=== PATIENT | male | born 1965 | race Caucasian/White ===

== ENCOUNTER 2020-11-17 10:45 | Emergency (ER) | payer OTHER, SELFPAY ==
[2020-11-17 10:47] VITALS: BP 135/98; PULSE 86; RESP 17; TEMP 36.7; O2SAT 97; BMI 28.9
--- NOTE | 2020-11-17 10:59 | EKG12_ITS ---
Test Reason : Blood Pressure : / mmHG Vent. Rate : 070 BPM Atrial Rate : 070 BPM P-R Int : 182 ms QRS Dur : 084 ms QT Int : 376 ms P-R-T Axes : 025 033 023 degrees QTc Int : 406 ms Normal sinus rhythm Normal ECG Confirmed by LEIGH EDGE, RADHA ([id number]), restaurant expeditor ARAMIS MOON ([id number]) on 11/23/2020 9:59:26 A M Referred By: CHAZ Confirmed By:KEISHA ABRAHAM MD
--- NOTE | 2020-11-17 10:59 | RAD_ITS ---
STUDY: X-RAY CHEST REASON FOR EXAM: Male, 55 years old. INTERMITTENT SOB X 2 WEEKS BUT ONLY WHEN SLEEPING TECHNIQUE: PA and lateral views of the chest. COMPARISON: None. FINDINGS: The lungs are clear and expanded. There is no demonstrated pleural abnormality. Normal size heart. Normal mediastinum and gloria. Normal visualized pulmonary arteries. Normal visualized aortic arch and descending thoracic aorta. Normal visualized thoracic spine. Normal visualized ribs, clavicles, and shoulders. There is no demonstrated abnormality of the visualized soft tissue structures of the upper abdomen. RAD/Chest PA and Lateral IMPRESSION: Normal x-ray examination of the chest. Electronically Signed: Fred Preston DO at 11:45 EST Tel , Service support ,
--- NOTE | 2020-11-17 11:09 | NURSING ---
NO OLD EKGS
[2020-11-17 11:23] LABS: Absolute Lymphocyte Count 1.38 X10^3/uL (0.83-4.51); Absolute Neutrophil Count 4.8 X10^3/uL (2.0-7.7); Basophil# 0.03 X10^3/uL; Basophil% 0.4 % (0-1); Eosinophil# 0.09 X10^3/uL; Eosinophils% 1.3 % (0-5); Hematocrit 45.9 % (40-54); Hemoglobin 15.4 g/dL (13.0-16.5); Lymphocyte # 1.38 X10^3/ul (4.0); Lymphocyte % 19.9 % (19-41); Mean Corp Hgb Conc 33.6 g/dL (32-36); Mean Corpuscular Hgb 29.9 pg (27.0-32.0); Mean Corpuscular Volume 89.1 fL (80-94); Mean Platelet Vol. 10.1 fl (6.2-12.0); Monocyte# 0.57 X10^3/uL; Monocyte% 8.2 % (0-10); NRBC Flagged by Analyzer 0 % (0-5); Neutrophil # 4.84 X10^3/uL (2.7-7.7); Neutrophil % 69.9 % (47-70); Platelet Count 265 K/mm3 (150-450); RBC Distribution Width CV 13.3 % (11.6-14.6); Red Blood Count 5.15 M/mm3 (4.6-6.2); White Blood Count 6.9 K/mm3 (4.4-11.0)
--- NOTE | 2020-11-17 11:23 | ED.DCSUM_ITS ---
History of Present Illness Chief Complaint: Shortness of Breath Informant: Patient Onset: Weeks Maximum Severity: Mild Narrative: Patient reports that for 2 or 3 weeks he has sensation just says he is about to fall asleep that startles him forces him to wake up as if he is short of breath but he is not short of breath. He can lay flat watching TV is not short of breath, he exercises by riding a bike for 20 miles a day and is not short of br eath. He has no fever no cough no coronavirus exposures no head neck chest or abdominal pain, no past history, no medications. He only has the sensation just before he is about to fall asleep he startles and wakes up, he was seen by outpatient providers work-up was negative and he was referred to [facility] providers for further management has not seen them yet. He had this sensation repeatedly throughout the course of the night he felt better when he woke up he rode his bike today continue to feel well and came to the emergency part for evaluation he has no symptoms as he lays at about 40 degrees in the bed His vital signs are unremarkable his pulse ox is 97% he speaking full sentences Past Medical History - Allergies and Home Meds Allergies/Adverse Reactions: Allergies No Known Allergies Allergy (Verified 11/17/20 10:47) Primary Care Physician: Corine Bernal PA [Primary Care Provider] - Past Medical History: None Review of Systems General: Denies: Chills, Fever, Sweats Eyes: Denies: Visual changes - bilaterally, Diplopia ENT: Denies: Rhinorrhea, Sore throat Cardiovascular: Denies: Chest pain, Palpitations Respiratory: Denies: Dyspnea, Cough, Dyspnea on exertion Gastrointestinal: Denies: Abdominal pain, Nausea, Vomiting, Diarrhea, Melena, Hematochezia Genitourinary: Denies: Dysuria, Hematuria, Frequency Musculoskeletal: Denies: Back pain, Extremity Pain Skin: Denies: Rash, Wounds Neurological: Denies: Headache, Weakness, Numbness Physical Exam Vital Signs/Narrative: Vital Signs Temp Pulse Resp BP Pulse Ox 11/17/20 10:47 98.0 F 86 17 135/98 H 97 General: Well nourished, Well developed, No Acute Distress Head: Normocephalic, Atraumatic Eyes: Perrl, EOMI ENT: Moist mucous membranes, No rhinorrhea Neck: Supple, Nontender Cardiovascular: Regular rate, Regular rhythm, No murmurs Respiratory: No distress, CTA bilaterally, Chest nontender Abdomen: Soft, Nontender, Nondistended, Normal bowel sounds Back: Nontender, Normal Inspection Extremities: Nontender, No edema Skin: Normal color, No rash Neurological: Alert, Oriented x3, Cranial nerves II-XII grossly intact, Normal Strength, Normal Sensation Psychological: Normal affect, Normal Mood Diagnostic/Tx/Re-eval - Medical Decision Making The patient's differential is rather extensive his EKG shows a sinus rhythm rate 70 no acute injury pattern appreciated, His physical exam is unremarkable his health history is negative for all he assures me when he rides his bike exercises does all of his routine activities he has no symptoms he is actually able to lay flat watching TV and never feels short of breath given his complaints ED screening evaluation The patient's ED screening evaluations x-rays labs all unremarkable he is remained asymptomatic in the department he is comfortable wants to go home I explained the exact etiology of this sensation remains unclear I recommend he follow-up with his outpatient providers, he can continue some gentle sleep aid s uch as melatonin and return for change in symptoms Home stable Final impression sleep disturbance etiology unclear ED Disposition - Plan for ED Patient: Diagnosis: Sleep disturbance Referrals: Corine Bernal PA [Primary Care Provider] - Additional Instructions: Follow-up with your outpatient providers for further management of the above complaints return for change in symptoms
[2020-11-17 11:31] LABS: Anion Gap 6 (5-15); BUN 17 mg/dL (7-18); BUN/Creat Ratio 17.6 RATIO (10-20); Chloride 109 mmol/L (98-107); Creatinine, Serum 0.96 mg/dL (0.70-1.30); EST Glomerular Filtration Rate 86 mL/min (>60); Est Glom Filt Rate - Afr Amer 104 mL/min (>60); Estimated Creatinine Clearance 101.09 ml/min; Glucose 97 mg/dL (74-106); Potassium 4.1 mmol/L (3.5-5.1); Sodium Level 141 mmol/L (136-145)
[2020-11-17 11:32] VITALS: O2SAT 98
[2020-11-17 11:41] LABS: BNP,B-Type NATRIURETIC PEPTIDE 2.9 pg/mL (0-100)
[2020-11-17 12:41] VITALS: PULSE 88; RESP 16; O2SAT 98
== END 2020-11-17 12:42 | disposition home or self-care (01) ==
PROVIDERS: Emergency Provider Emergency Medicine; PCP Physician Assistant
DX: G47.9 Sleep disorder, unspecified (principal)
CPT/HCPCS: 71046; 80048; 83880; 84484; 85025; 93005; 99284; A4216

== ENCOUNTER 2024-10-12 18:11 | Emergency (ER) | payer BC, SELFPAY ==
[2024-10-12 18:12] VITALS: BP 129/90; PULSE 90; RESP 17; TEMP 36.3; O2SAT 99; BMI 27.6
--- NOTE | 2024-10-12 19:54 | EDS_ITS ---
HPI HPI - Fall History of Present Illness Chief Complaint: Fall Informant: patient Occured/Mechanism Occurred: Today and Hours Mechanism/Context: Yes same level fall and Yes trip Usually ambulates: Without assistance Pain/Injury Pain Location: other (Facial lip laceration) Quality of Pain: Dull Current Severity: Mild Maximum Severity: Mild Narrative Narrative: 58-year-old male was in his garage blowing out leaves. He stepped backwards there were some supply store in his garage for work the door in his house. He tripped over and fell backwards the blower he was using hit the ground and then hit him in the face causing a laceration to the right lateral lip. No LOC. He is not on any blood thinners. He denies any significant head injury other than his lip. Tetanus is not up-to-date. But he does not want a tetanus shot. Tetanus Immunization: Unknown (Patient was offered but did not want a tetanus shot.) Prior similar symptoms: No Recent Illness/Hospitalization: No PFSH PFSH Medical History no medical history no medical history Home Medications ?Medication ?Instructions ?Recorded ?Last Taken ?Type NK 10/12/24 Unknown History Allergy/AdvReac Type Severity Reaction Status Date / Time No Known Allergies Allergy Verified 10/12/24 18:12 Social History Smoking Status: Never smoker ROS ROS ED ROS Narrative Denies any recent illness. Constitutional Constitutional ED: Denies chills or fever(s) Eyes Eyes: Denies blurry vision ENT ENT ED: Denies ear pain Cardiovascular Cardiovascular: Denies chest pain Respiratory/Chest Respiratory/Chest: Denies cough or dyspnea Gastrointestinal Gastrointestinal: Denies abdominal pain Genitourinary Genitourinary ED: Denies dysuria or hematuria Musculoskeletal Musculoskeletal: Denies arthralgias Integumentary Denies abscess Neurologic Neurologic: Denies paresthesias or weakness Psychiatric Psychiatric: Denies anxiety or depression Endocrine Endocrinology: Denies polydipsia Hematologic/Lymphatic Hematologic/Lymphatic: Denies easy bleeding Allergic/Immunologic Allergic/Immunologic ED: Denies mouth swelling EXAM Physical Exam Narrative Exam Narrative: 58-year-old male vital signs are stable afebrile. Sitting upright in bed. Significant other at bedside. H EENT exam pupils round reactive light. Extra motions are intact. His laceration to his right upper lip along the vermilion border and into the lip. It will need repaired. Dentition intact. No malocclusion. Jaw nontender. No other facial trauma. Scalp nontender. No hematoma or laceration. Neck nontender normal range of motion. Trachea midline. Back and spine nontender. Lungs clear equal and symmetrical. Heart regular rhythm rate about 90 no murmur. Chest wall and ribs nontender. No crepitance or subcu air. Abdomen soft nontender. Pelvic girdle intact. Moving all 4 extremities. Normal range of motion. Nontender no deformity. Bilateral equal and symmetrical plastic design applier strength. Dorsi plantarflexion intact. Neurologically is awake and alert. Answering questions following commands. GCS of 15. Const Vital Signs: 10/12/24 18:12 10/12/24 19:03 Temperature 97.4 F L Temperature Source Temporal Pulse Rate 90 Respiratory Rate 17 Respiratory Effort Normal Blood Pressure 129/90 H Blood Pressure Mean 103 Pulse Ox 99 Oxygen Delivery Method Room Air Positive well nourished and well developed; Negative for cachectic, contractures or unkempt General Appearance ED: well developed and NAD; Negative for unkempt, cachectic or contractures Nutritional Appearance: Negative for cachectic HEENT Reports normocephalic HEENT Narrative: Right upper lateral lip laceration to the vermilion border. trauma; Negative for atraumatic or hematoma Eyes PERRL and EOMs intact bilaterally Neck full ROM, no lymphadenopathy and supple General: Negative for tenderness Chest Wall inspection of chest normal and palpation of chest normal Resp normal respiratory effort, no retractions and clear to auscultation bilaterally Auscultation: Negative for rales, rhonchi or wheezes Cardio regular rate, regular rhythm, S1 normal heart sound, S2 normal heart sound and no murmurs Rhythm: Negative for abnormal rhythm GI non-tender, non-distended and no masses Inspection: Negative for abdominal distention Palpation: soft; Negative for guarding or rebound tenderness present Back/Spine no CVA tenderness General Back: Negative for CVA tenderness Cervical Spine: Negative for cervical spine tenderness Thoracic Spine / Upper Back: Negative for ROM limited Lumbar Spine / Lower Back: Negative for lumbar spinal tenderness Neuro oriented x3, CN's II-XII intact bilaterally, moves all extremities and no focal motor deficits Lawrence Coma Scale: document GCS findings Spontaneous Obeys Commands Oriented 15 Sensorium / Orientation: alert, oriented to person, oriented to place and oriented to time; Negative for orientation impaired, confused or lethargic Motor Exam: strength 5/5 throughout Psych mental status grossly normal and thought process normal Appearance: Negative for unkempt Attitude: No agitated Mood & Affect: Negative for depressed, anxious or tearful Skin Lesions: no lesions Rashes: no rashes Trauma: laceration; Negative for abrasion MDM MDM MDM Narrative Medical decision making narrative: 58-year-old male tripped and fell at home was hit in his right upper lip by a leaf blower. Has a laceration along the vermilion border that needs repaired. No other significant injuries. Tylenol for mild headache. No signs of head trauma. He is on no blood thinners. He had no LOC. He was offered but does not want a tetanus shot. History & Record Review Discussion w/independent historian: Patient and Family Procedures Lacerations Right upper lip laceration repair:: Length: 2 in Depth: Sub Q Shape: Flap Prep: Shdenis-Clens Laceration repair: Irrigated, Lidocaine, Lidocaine with epi, Local and Wound explored Number of Sutures/[place]: 5 Suture Information: Ethilon and 5-0 Comment: Right upper lip laceration. Involving the lip and vermilion border. Area was anesthetized with lidocaine and let. Proper anesthetic was obtained. Cleaned with Shur-Clens. Explored and washed and irrigated with saline. Closed using 5 simple interrupted 5-0 Ethilon sutures. Proper hemostasis wound closure obtained. Patient was instructed on wound healing and wound care. The vermilion border lined up well. Stitches out in a week. Discharge Plan Triage Chief Complaint: Fall Other Complaint: Laceration ED Provider: Candido Grimm Dx/Rx/DC Orders Clinical Impression: Fall, Acute head trauma, Laceration of lip Instructions: ED Head Injury (Adult), ED Laceration, All Closures Prescriptions: No Action NK Primary Care Provider: Evie Quintanilla LEM[facility] PICKER Referrals: Corine Bernal PA [Non-Staff] - 7 Days for suture removal Activity Restrictions/Additional Instructions: Ice to your lip to decrease pain and swelling. Tylenol for pain. Follow-up your primary care provider to have the stitches out in 7 to 10 days. No less than 7. Gently clean daily with soap and water or peroxide and water. Apply antibiotic ointment. Return if any signs of infection. Print Language: Ukrainian Disposition Disposition: Home, Self Care
[2024-10-12] MEDS: Lidocaine 1% (20 ml mdv) 20 ML Vial 10 ML INFILT (20:15)
[2024-10-12] MEDS: Lidocaine/Epi/Tetracaine 50 ML 1 APPLIC TOPICAL (20:15)
[2024-10-12] MEDS: Acetaminophen 500 MG Tablet 1000 MG PO (20:15)
[2024-10-12 22:18] VITALS: BP 138/78; PULSE 90; RESP 16; TEMP 36.6; O2SAT 97
== END 2024-10-12 22:19 | disposition home or self-care (01) ==
LOC: ED 20:18
PROVIDERS: Emergency Provider Emergency Medicine; PCP Nurse Practitioner Family; Visit Provider Emergency Medicine
DX: S01.511A Laceration without foreign body of lip, initial encounter (principal); W18.30XA Fall on same level, unspecified, initial encounter
CPT/HCPCS: 12011; 99283